=== PATIENT | female | born 1960 | race Caucasian/White ===

== ENCOUNTER 2018-07-25 06:39 | Inpatient (IN) | payer OTHER ==
--- NOTE | 2018-07-25 07:20 | EDPHY ---
H & P Stated Complaint: NE Hyperglcemia - Personal History Current Tetanus/Diphtheria Vaccine: Yes Current Tetanus Diphtheria and Acellular Pertussis (TDAP): Yes - Medical/Surgical History Hx Asthma: No Hx Chronic Respiratory Disease: No Hx Diabetes: Yes Hx Cardiac Disease: No Hx Renal Disease: No Hx Cirrhosis: No Hx Alcoholism: No Hx HIV/AIDS: No Hx Splenectomy or Spleen Trauma: No Other PMH: DM, Depression - Social History Smoking Status: Never smoked Time Seen by Provider: 07/25/18 06:55 Constitutional: Initial Vital Signs Temperature (C) 36.9 C 07/25/18 06:40 Heart Rate 94 07/25/18 06:40 Respiratory Rate 16 07/25/18 06:40 Blood Pressure 194/108 H 07/25/18 06:40 O2 Sat (%) 96 07/25/18 06:40 O2 Delivery Mode Room Air Allergies/Adverse Reactions: No Known Allergies Allergy (Unverified 07/25/18 06:55) Home Medications: Medication Instructions Recorded metFORMIN HCL [Metformin HCl] 500 mg PO BID 07/25/18 Medical Decision Making ED Course/Re-evaluation: CHIEF COMPLAINT: Psychiatric evaluation HISTORY OF PRESENT ILLNESS: The patient is a 57 y/o female with a history of type 2 diabetes and depression arriving via EMS on an M1 hold for depression today. Per EMS and the M1 hold, the patient presented herself to an outpatient mental health clinic for suicidal ideations. She was stating that she was going to kill herself with a gun, which she has at home, but then stated that she would never actually do it. Due to the suicidal ideations, she was placed on an M1 hold at the mental health clinic. While at the mental health clinic, her BGL was checked and was noted to be elevated. She states that she takes her medications as prescribed, including her Metformin. She just started Wellbutrin on , 4 days ago. She was subsequently sent here on M1 hold for further evaluation and to ensure that her BGL are okay. While in the ER, she states that she has had suicidal thoughts and depression "for a long time". No headache, chest pain, shortness of breath, abdominal pain, urinary or bowel complaints, numbness, paresthesias, fevers. REVIEW OF SYSTEMS: A comprehensive 10 system review of systems is otherwise negative aside from elements mentioned in the history of present illness and medical decision making. PHYSICAL EXAM: General Appearance: Alert, well hydrated, appropriate, and non-toxic appearing. Head: Atraumatic without scalp tenderness or obvious injury Eyes: Pupils equal, round, reactive to light and accommodation, EOMI, no trauma , no injection. Ears: Clear bilaterally, no perforation, normal landmarks Nose: Atraumatic, no rhinorrhea, clear. Throat: There is no erythema or exudates, no lesions, normal tonsils, mucus membranes moist. Neck: Supple, 2+ carotid upstroke, nontender, no lymphadenopathy. Respiratory: No retractions, no distress, no wheezes, and no accessory muscle use. Lungs are clear to auscultation bilaterally. Cardiovascular: Regular rate and rhythm, no murmurs, rubs, or gallops. Bilateral carotid, radial, dorsalis pedis, and posterior tibial pulses intact. Good capillary refill all extremities. Gastrointestinal: Abdomen is soft, nontender, non-distended, no masses, no rebound, no guarding, no peritoneal signs. Musculoskeletal: Normal active ROM of all extremities, atraumatic. Neurological: Alert, appropriate, and interactive. The patient has normal DTRs and non-focal cranial nerves, motor, sensory, and cerebellar exam. Skin: No rashes, good turgor, no nodules on palpation. Psych: Flat affect, expresses suicidal ideations Past medical history: Type 2 diabetes, depression Past surgical history: Denies Family history: Denies Social history: Lives in [place], single, employed DIFFERENTIAL DIAGNOSIS: The differential diagnosis for the patient's depression included but was not limited to functional and major depression, situational depression, medication side effect, drugs, and alcohol abuse. MEDICAL DECISION MAKING: The patient is a 57 y/o female arriving via EMS on an M1 hold for depression and suicidal ideations. Her blood sugar was also noted to be higher than normal. Patient is in no acute distress and is hemodynamically stable. She is not in DKA. We are awaiting psychiatric team's evaluation. Patient has known history of psychiatric disorders and is here for evaluation. 0723: BGL is 452; 850mg PO Metformin administered as she has not taken her morning dose today. 1500: Patient care turned over to Dr. Tucker at shift change. (Sergio Infante) 5:45 p.m. the patient's blood glucose remains elevated in the 300s. The patient states that this is likely her baseline. She does not typically pay close attention to her diet and often does not take her medications. It would be beneficial if she could receive some medical attention while she is in the psychiatric facility as well although she does not need to be admitted for her chronic hyperglycemia. She is currently asymptomatic. [facility] is taking this under consideration. 7:00 p.m. Patient accepted at [address] [place] [address]. Transfer paperwork completed. (José Miguel Tucker) - Data Points Laboratory Results: Laboratory Results 07/25/18 07:00 07/25/18 07:00 07/25/18 07/25/18 17:23 15:10 POC Glucose 321 mg/dL H mg/dL 305 mg/dL H mg/dL (70-100) (70-100) Medications Given: Discontinued Medications Metformin HCl (Glucophage) 850 mg PO EDNOW ONE Stop: 07/25/18 07:25 Last Admin: 07/25/18 07:46 Dose: 850 mg Metformin HCl (Glucophage) 500 mg PO ONCE ONE Stop: 07/25/18 16:21 Last Admin: 07/25/18 17:32 Dose: 500 mg Point of Care Test Results: Chemistry 07/25/18 07/25/18 07/25/18 17:23 15:10 07:19 POC Sodium 136 mEq/L mEq/L (135-145) POC Potassium 4.0 mEq/L mEq/L (3.3-5.0) POC Chloride 100 mEq/L mEq/L (97-110) POC BUN 10 mg/dL mg/dL (7-23) POC Creatinine 0.5 mg/dL L mg/dL (0.6-1.0) POC Glucose 321 mg/dL H mg/dL 305 mg/dL H mg/dL 452 mg/dL H mg/dL (70-100) (70-100) (70-100) ISTAT H&H 07/25/18 07:19 POC Hgb 16.0 gm/dL gm/dL (12.6-16.3) POC Hct 47 % % (38-47) Departure - Departure Disposition: [facility] IP Clinical Impression: Suicidal ideation, Hyperglycemia Condition: Fair Report Scribed for: Sergio Infante Report Scribed by: Lety Jeffries Date of Report: 07/25/18 Time of Report: 07:21
[2018-07-25 07:23] LABS: PLATELET COUNT 186 10^3/uL (150-400)
[2018-07-25] MEDS ORDERED: metFORMIN HCL 850 MG TAB PO ONE (07:24)
[2018-07-25] MEDS ORDERED: metFORMIN HCL 500 MG TAB PO ONE ×2 (16:20→22:30)
--- NOTE | 2018-07-25 21:55 | ASMTTCLDSP ---
[facility] Discharge Disposition Disposition: Answers: Admit Discharge Concerns/Recommendations: Notes: In consultation with on-call psychiatrist, Drew Melara MD, concurred that pt appears to meet 27-65 criteria requiring psychiatric hospitalization as pt appears to be at risk of harm to self due to a mental illness condition. Was patient given the Answers: Yes Inpatient Behavioral Health Prohibited Belongings List while in the ED? For inpatient Drew Melara MD admission, the following psychiatrist agreed to accept patient for admission to Behavioral Health ([facility]): Date Signed: 07/25/2018 09:54 PM Electronically Signed By:Cuca Novak
[2018-07-25] MEDS ORDERED: MAG HYDROX/AL HYDROX/SIMETH 30 ML UDCUP PO PRN (22:00)
[2018-07-25] MEDS ORDERED: ACETAMINOPHEN 325 MG TAB PO PRN (22:00)
[2018-07-25] MEDS ORDERED: LORazepam 0.5 MG TAB PO PRN (22:00)
[2018-07-25] MEDS ORDERED: MAGNESIUM HYDROXIDE 30 ML UDCUP PO PRN (22:00)
[2018-07-25] MEDS ORDERED: OLANZapine DISINTEGR 5 MG TAB PO PRN (22:00)
--- NOTE | 2018-07-26 08:56 | ASMTBHMTP ---
Master Treatment Plan Master Treatment Plan Answers: Depressed Mood with for: Suicidal Ideation Date: 07/26/2018 Diagnosis on Admission: Schizophrenia Undifferentiated Expected length of stay: 3-5 Days Patient's stated presenting problems: Notes: Pt. shared she has struggled with depression since being a teenager. Pt. shared about having suicidal thoughts at times. Pt. stated she felt she was spiraling out of control and went to a walk-in clinic. Patient's goals for treatment: Notes: Not sure at this time Patient's strengths: Notes: Dedicated and hard worker Identify supports outside of hospital: Notes: Friend Discharge criteria: Notes: Suicidal ideation will resolve and patient will have a plan to safely manage recurrent suicidal ideation. Initial disposition plan/considerations: Notes: Return to apartment, follow up with providers. Master Treatment Plan Required Signatures Psychiatrist signature: Answers: Psychiatrist: RN on-shift signature: Answers: RN: Patient signature: Answers: Patient: Date Signed: 07/26/2018 08:56 AM Electronically Signed By:Claudia Suarez
[2018-07-26] MEDS ORDERED: metFORMIN HCL 500 MG TAB PO SCH (09:00)
--- NOTE | 2018-07-26 11:44 | ASMTLCPROG ---
Notes Note: Notes: Pt was admitted to 3 and the [facility] report was faxed to . Pt was given the belonging list while in the ED. Date Signed: 07/26/2018 11:43 AM Electronically Signed By:Cuca Novak
[2018-07-26] MEDS: buPROPion XL 150 MG TAB PO SCH (12:11)
--- NOTE | 2018-07-26 13:55 | ASMTCMCOM ---
CM Note CM Note Notes: Pt and CC completed MTP, signed and placed in pt's chart. Pt. stated she needs to follow up with her survey field technician, as she has applied for disability and is unsure if she now has Medicare. Pt. stated she does own a gun. Pt. stated her home is filled with mail and items and stated she needs help going through everything. Pt. stated her friend might be able to help go through her things after discharge. Pt. stated her friend is caring for her cat while pt is in the hospital. Pt. stated she has no current legal issues. Pt. reports "rarely" drinking alcohol. Pt. stated she smoked THC in the past "for anti-bacterial" for her sinuses and head. Pt. shared she has suffered from numerous ear infections. Pt. stated she tappered off THC because it was causing her anxiety. Pt. stated this is her first mental health hospitalization. Pt. stated she has tried both Zoloft and Effexor in the past, but there were not helpful. Pt. presents as alert, talkative, friendly, tearful when speaking about her depression, good eye contact, and cooperative. Staff report pt. sleeping 5.5 hours and being medication compliant. Date Signed: 07/26/2018 01:55 PM Electronically Signed By:Claudia Suarez
--- NOTE | 2018-07-26 15:08 | BAPA ---
DATE OF SERVICE: 07/26/2018 REASON FOR ADMISSION: Patient is a 57-year-old female with a history of depression. She w as admitted to the hospital after having been brought to the emergency room by police. She had previ ously been brought to the walk-in center by a friend after she called the friend to ask for her help. She states that her life had become essentially unmanageable as she has been neglecting to care for herself, clean, attend to her personal hygiene, or open any of her e-mail or mail. She has applied for disability and actually had a hearing in April, but has not opened her mail since that time out of fear that she will have been rejected. She states that the mail has accumulated, along with a few other items, such as trash that she now is feeling overwhelmed at the prospect of cleaning. She called her friend whom she states is her only support at this time and asked her she would help h er get started on the project. When the friend arrived, the patient admitted that she had been havin g thoughts of suicide. The friend took her to the walk-in clinic where she also voiced thoughts of s uicide stating that she had a gun at home, which with she could shoot herself. The patient states th at she did make the statements and that she has had the gun since for home defense. She states that there was a time in the past more than 15 years ago where she was having a lot of work stress a nd would actually sit with the gun after work and contemplating shooting herself, but she has not don e this in many years. She states that at this time she simply feels overwhelmed, helpless, and hopeless, and has the idea o f suicide with no plan, stating "I just want to know that I have a way out at the end." She denies a ny eminence to the desire for , dying, or suicide. She denies having made any recent attempts o r created any plan. She does states that she has felt more stressed over the last several months, la rgely due to her social isolation and declining mood. She saw her primary care physician recently who started her on Wellbutrin, though she has only taken it for less than a week. She reports 2 previous treatments in the past with antidepressants, includi ng Zoloft and Effexor that were ineffective. She is not currently engaged in any psychotherapy. She reports estranged relationships with her siblings and no other local supports. She has financial difficulties as she has not worked since 2014, and has not worked full-time in approximately 8 years . She has been living off an inheritance she got from her father upon his , though this is appa rently running out. She states that she has been diagnosed with diabetes in the past, but does nothing to monitor, treat, or maintain this illness. Her blood sugar was over 400 in the emergency department when she arrived . She is tearful when discussing this, stating that she is ashamed for having allowed her life to be come so disorganized. PAST PSYCHIATRIC HISTORY: Largely as above. She has no current outpatient providers. She is only h ad 1 brief stint of psychotherapy in the past, which she stated was not particularly effective. She is not against establishing the services again. ALLERGIES: No known medical allergies. CURRENT MEDICATIONS: Bupropion immediate release 100 mg b.i.d., metformin 500 mg b.i.d. PAST MEDICAL HISTORY: Significant for obesity, type 2 diabetes. SOCIAL HISTORY: Patient is single, never . No dependents. She was raised in [place] in a small town where her father worked at the local college. She is a high school graduate and attended the college in her hometown, though dropped out after a year because she could not decide what she wa nted to study. She states she had a strict upbringing, though did not feel like it was abusive. She denies any traumas in her life. She currently lives alone and has no active supports, besides her 1 friend who used to be a boss. 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 She has a history of alcohol, marijuana use, though has not drank recently. She uses marijuana up to a daily basis. She denies any legal problems. Patient is currently unemployed and is subsisting on an inheritance from her father that is reportedly running out. She did apply for social security [employer] income and had a hearing several months ago, though is unaware of the outcome. FAMILY HISTORY: Patient states that she is unaware of any family history of serious mental illness o r suicide. ADMITTING LABORATORY: CBC is normal. Serum chemistries are normal. Initial glucose was 452. Subse quent glucoses have all been over 300. Hemoglobin A1c is 9.2. Triglycerides are elevated at 220, ch olesterol is up at 232. TSH is high at 5.4. Urine drug screen is positive for marijuana. MENTAL STATUS EXAMINATION: Reveals an obese, healthy-appearing female. She is adequately groomed, casually dressed. She interacts well with the examiner, maintaining good eye contact and a calm and pleasant demeanor. Her activity and speech are normal. Her affect is generally euthymic, s table, and appropriate. She does become tearful at times when discussing feelings of shame and guilt about her lack of productivity in general and life. Her thought process is linear and goal directed . Her thought content reveals no evidence of psychosis. She is alert and oriented to person, place, time, and situation, and her sensorium is clear. She denies any thoughts of suicide at this time, s tating that she never had a specific plan or intent to harm herself, but that she simply was very fru strated and feeling helpless and hopeless. Her intellect appears to be at least average as evidenced by her educational and occupational histories, fund of knowledge, and vocabulary. Her insight and j udgment appear to be good. IMPRESSION: Patient is a 57-year-old female with a history of depression. She also seems to have some characteristics of possible obsessive-compulsive anxiety, and even hoarding, and an extr garry avoidant personality. She also has some empiric evidence of frontal lobe dysfunction in that s he has struggled tremendously to initiate activities, organize herself, and has real problems just ma intaining her activities of daily living. She states that she always does better when she has steamship agent al motivations and this appears to be evident. Her suicidality is certainly concerning, though she i s adamant that she is not suicidal at this time. She describes chronic suicidality and lethal means, though no intent to act at this time. PLAN: 1. Admit to the behavior health services inpatient unit on an M1 hold. 2. Continue her outpatient medications, including metformin and start Wellbutrin XL 300 mg daily. T he risks, benefits, and alternatives of this were discussed with her and she agrees to proceed. 3. Engage in individual, group, and milieu psychotherapies, as well as clinical serial interviews in order to better understand her current condition and recommend ongoing treatment. 4. Will work with the patient to establish effective outpatient individual psychotherapy, as well as medication management. 5. Estimated length of stay is 3 to 5 days. /[id number]/MODL
[2018-07-26] MEDS: LISINOPRIL 20 MG TAB PO SCH (15:33)
--- NOTE | 2018-07-26 19:39 | BCON ---
INTERNAL MEDICINE CONSULTATION DATE OF CONSULTATION: 07/26/2018 REFERRING PHYSICIAN: Dr. Melara REASON FOR REFERRAL: Medical clearance for inpatient behavioral health stay. HISTORY OF PRESENT ILLNESS: This patient came to the emergency department from a mental health walk-in clinic. She had expressed suicidal ideation and reported that she had a gun at home and might shoot herself. Subsequently, she denied that she would go through with shooting herself. However, after evaluation by the mental health team, she was admitted to inpatient behavioral health for further psychiatric care. She currently is without any acute complaints. PAST MEDICAL HISTORY: 1. Diabetes mellitus type 2. 2. Hypertension. 3. Orthopedic surgeries. MEDICATIONS: She had been taking metformin and possibly other medications that she does not recall. She lost her insurance and has been taking fewer medications. She also had been taking bupropion XL 300 mg daily. SOCIAL HISTORY: She lives alone. She is unemployed and applying for disability. She has been a smoker in the past but is not currently. She uses rare alcohol, and she uses fairly regular marijuana. FAMILY HISTORY: Noncontributory. REVIEW OF SYSTEMS: She reports back pain which is chronic if she is too active. She also has some knee pain, and she has had arthroscopy of the knees. She sleeps well. She is unaware whether she snores or not. She awakes refreshed in the morning. She denies cough or dyspnea. She denies recent weight change. She denies fevers or chills. She denies nausea, vomiting, constipation, diarrhea. She denies dysuria or urinary frequency. Otherwise, a 10-point review of systems is negative. PHYSICAL EXAM: VITALS: Yesterday evening, blood pressure was measured at 196/ 94, and since she presented to the emergency department, it has been in the range of 138-206 systolic and 81-120 diastolic. Heart rate was 99. Respiratory rate was 18. Oxygen saturation was 97% on room air. Temperature was 37.8 degrees centigrade. Her weight is 113.4 kg for a body mass index of 40. GENERAL: This is a very obese woman, appears her chronologic age, sitting up on the bed, dressed in street clothes, cooperative, in no acute distress. HEENT : Extraocular movements are intact. Pupils are round and reactive to light. Her left pupil is slightly larger than her right pupil. Mucous membranes are moist. Dentition is in good condition, though she has the odor of halitosis. She has a crowded airway, Mallampati class IV. NECK: Supple. HEART: There is a regular rate and rhythm, with no murmurs, rubs, or gallops. LUNGS: Clear to auscultation bilaterally. ABDOMEN: Obese and benign. EXTREMITIES: There is no cyanosis, clubbing, or edema. NEUROLOGIC: She is alert and oriented x3. Cranial nerves 2-12 are grossly intact. There is no focal weakness. Sensation is intact to light touch, including sensation over her feet. Gait is within normal limits. LABORATORY STUDIES: From the emergency department, CBC was normal. Serum chemistry initially revealed low carbon dioxide and a low creatinine of 0.5. Otherwise, renal function and electrolytes were normal. Blood sugars ranged from 305-452. Hemoglobin A1c was 9.2. Liver function tests were normal. Lipid panel revealed elevated triglycerides at 220, elevated cholesterol at 232 , elevated LDL of 151, HDL low at 37. TSH was slightly elevated at 5.48. Serum drug screen was negative for salicylates, acetaminophen, or ethyl alcohol. Urine drug screen was non-negative for marijuana but otherwise negative for substances of abuse. ASSESSMENT/RECOMMENDATIONS: 1. Mental health issues pending further evaluation and management per Psychiatry and the mental health team. 2. Diabetes mellitus type 2, poorly controlled: I have increased her metformin to 1000 mg twice daily. I have reviewed second-line medications available on Medicaid, which presumably will be her insurance going forward, and short- and long-acting insulins are available without prior approval, as is pioglitazone. Both of these medications would put her at risk of further weight gain, and pioglitazone has the additional adverse effect of bone loss. It would be in her best interest to start a DPP-4 inhibitor such as sitagliptin or linagliptin or an injectable GLP-1 analog such as exenatide, as these classes of medications are weight neutral or promote weight loss; however, these medications have eligibility criteria per Medicaid. She needs to have inadequate control on 3 months of metformin. The advantage of these medications is that she will also likely lose some weight, and it seems likely that she will need more than 1 medication. However, for now, will only prescribe metformin. Continue to follow her blood sugars. Consider initiation of insulin before she leaves, depending on her response to full-dose metformin. She reports she has not had an eye exam in a number of years. It would be in her interest to have a baseline eye exam done, as this is indicated in patients with diabetes. 3. Hypertension: We will initiate lisinopril at 20 mg daily and follow blood pressures. With her higher blood pressure readings, she would likely need a second agent. With lower blood pressure readings, a single agent might be adequate. We will monitor to see how she responds. 4. Dyslipidemia: Per the [place] [employer]/[place] [employer] risk calculator, her 10-year risk of heart disease or stroke is 10.2 %, and a high-intensity statin medication is indicated. I have initiated rosuvastatin at 20 mg daily, and she should follow up with Primary Care following her discharge regarding her response. 5. Morbid obesity: As discussed above, it would be to her advantage to initiate a DPP-4 inhibitor or GLP-1 agonist to treat her diabetes, as patients tend to lose weight with these. I will order a dietary consult regarding obesity as well as diabetes mellitus type 2. Consider avoiding psychiatric medications which might promote further weight gain. 6. Possible subclinical hypothyroidism: She is without any symptoms. TSH is only minimally elevated. She can follow up with primary care. Would advise a repeat TSH in approximately 6 weeks. I see no medical contraindications to this patient's continued stay on the inpatient behavioral health unit or to any psychiatric medications or procedures. Thank you very much for including me in the care of this patient, and please do not hesitate to contact me or the hospitalist service should there be need for further medical evaluation. I will follow along regarding her blood pressure and blood sugars. /[id number]/MODL MTDD
[2018-07-26] MEDS: metFORMIN HCL 500 MG TAB PO SCH (20:24)
[2018-07-27] MEDS: ASPIRIN EC 81 MG TAB PO SCH (08:47)
[2018-07-27] MEDS: ROSUVASTATIN CALCIUM 10 MG TAB PO SCH (08:47)
[2018-07-27] MEDS: buPROPion XL 150 MG TAB PO SCH (08:47)
[2018-07-27] MEDS: LISINOPRIL 20 MG TAB PO SCH (08:48)
[2018-07-27] MEDS: metFORMIN HCL 500 MG TAB PO SCH ×2 (08:49→18:07)
--- NOTE | 2018-07-27 13:27 | ASMTCMCOM ---
CM Note CM Note Notes: CC checked in with ct. Ct. grooming is marginal. She reported doing better. She denied SI/HI and reported that she would like to discharge. D/C is planned for tomorrow and ct. has a F/U appointment with P on 07/29. Per Dr. Melara ct. 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 Date Signed: 07/27/2018 01:26 PM Electronically Signed By:Delores Talley
[2018-07-28] MEDS: buPROPion XL 150 MG TAB PO SCH (09:16)
[2018-07-28] MEDS: ASPIRIN EC 81 MG TAB PO SCH (09:17)
[2018-07-28] MEDS: LISINOPRIL 20 MG TAB PO SCH (09:17)
[2018-07-28] MEDS: metFORMIN HCL 500 MG TAB PO SCH (09:17)
[2018-07-28] MEDS: ROSUVASTATIN CALCIUM 10 MG TAB PO SCH (10:05)
[2018-07-28 15:02] VITALS: BP 137/71
== END 2018-07-28 16:39 | disposition home or self-care (01) | DRG 880 ==
LOC: EDUNIT# → BBEH 21:20
PROVIDERS: ADMIT Psychiatry & Neurology Psychiatry; ATTEND Psychiatry & Neurology Psychiatry
DX: R45.851 Suicidal ideations (principal); F32.9 Major depressive disorder, single episode, unspecified; E11.65 Type 2 diabetes mellitus with hyperglycemia; I10 Essential (primary) hypertension
CPT/HCPCS: 80305; 82435-PO; 82565-PO; 82947-PO; 84132-PO; 84295-PO; 84520-PO; 85014-PO; G0480